=== PATIENT | male | born 1960 | race African-American/Black ===

== ENCOUNTER 2016-12-13 08:30 | Emergency (ER) | payer OTHER, MEDICAID ==
[~2016-12-13] VITALS: Ht 167.6 cm; Wt 82.0 kg
[~2016-12-13 08:30] MED LIST: ABACAVIR PO; ATOR20TA65 PO; CLON0.5T4 PO; DESV50TA4 PO; DIVA500T51 PO; FOLI-43 PO; LEVE500T19 PO; LEXIVA PO; MEGE400O PO; METO-293 PO; OLAN2.5T29 PO; QUET100T33 PO; RALT400T PO; RITO100T PO
[2016-12-13 12:49] VITALS: BP 137/78
== END 2016-12-13 12:50 | disposition home or self-care (01) ==
LOC: ER 08:48
DX: H10.9 Unspecified conjunctivitis (principal)
CPT/HCPCS: 99283

== ENCOUNTER 2019-02-05 12:53 | Emergency (ER) | payer MEDICAID, OTHER ==
[~2019-02-05] VITALS: Ht 167.6 cm; Wt 87.0 kg
[~2019-02-05 12:53] MED LIST changes: +CLON0.5T12 PO; -CLON0.5T4 PO
[2019-02-05 13:08] VITALS: BP 134/88
[2019-02-05] MEDS ORDERED: IBUPROFEN 600MG TABLET PO ONE (16:00)
== END 2019-02-05 18:14 | disposition home or self-care (01) ==
LOC: ER 12:53
DX: M79.642 Pain in left hand (principal)
CPT/HCPCS: 73110; 73130; 99283